=== PATIENT | male | born 1975 | race Caucasian/White ===

== ENCOUNTER 2022-10-17 19:00 | Outpatient (CLI) | payer BC | END 2022-10-17 19:01 | disposition home or self-care (01) | LOC: SLEEPLAB 19:00 | PROVIDERS: ATTEND Family Medicine | DX: G47.33 Obstructive sleep apnea (adult) (pediatric) (principal); R06.83 Snoring; R53.83 Other fatigue; G47.10 Hypersomnia, unspecified; I10 Essential (primary) hypertension; R55 Syncope and collapse; R51.9 Headache, unspecified; G47.00 Insomnia, unspecified | CPT/HCPCS: 95811 ==